=== PATIENT | female | born 1955 | race Caucasian/White ===

== ENCOUNTER 2024-10-27 08:25 | Emergency (ER) | payer MEDICARE, OTHER ==
[~2024-10-27] VITALS: Ht 157.5 cm; Wt 78.1 kg
[2024-10-27 08:36] VITALS: BP 149/100; PULSE 104; RESP 16; O2SAT 97
[2024-10-27] MEDS ORDERED: LIDO700A32 TOP (09:39)
[2024-10-27 09:53] VITALS: TEMP 98
== END 2024-10-27 10:00 | disposition home or self-care (01) ==
LOC: ER 08:26
DX: M25.511 Pain in right shoulder (principal); Z88.6 Allergy status to analgesic agent
CPT/HCPCS: 73030; 99283

== ENCOUNTER 2024-11-19 11:05 | Emergency (ER) | payer MEDICARE ==
[~2024-11-19] VITALS: Ht 157.5 cm; Wt 77.6 kg
[~2024-11-19 11:05] MED LIST: LIDO700A32 TOP
[2024-11-19 12:09] LABS: ALBUMIN 3.9 G/DL (3.4-5.0); ANION GAP 10 (8-16); BASOPHILS # (AUTO) 0.1 X10'3 (0-0.2); BASOPHILS % (AUTO) 0.6 % (0-1); BLOOD UREA NITROGEN 13 MG/DL (7-18); BUN/CREATININE RATIO 18.6 (10.0-20.0); CALCIUM 8.8 MG/DL (8.5-10.1); CHLORIDE 103 MMOL/L (99-107); EOSINOPHILS # (AUTO) 0.1 X10'3 (0-0.9); EOSINOPHILS % (AUTO) 0.9 % (0-6); GLUCOSE 104 MG/DL (70-104); HEMATOCRIT 40.2 % (35.0-45.0); HEMOGLOBIN 13.7 g/dl (12.0-16.0); LYMPHOCYTES # (AUTO) 0.6 X10'3 (1.1-4.8); LYMPHOCYTES % (AUTO) 6.8 % (21-51); MEAN CORPUSCULAR HEMOGLOBIN 33.7 PG (27.0-31.0); MEAN CORPUSCULAR HGB CONC 34.1 g/dL (33.0-36.5); MEAN CORPUSCULAR VOLUME 98.8 FL (78-98); MEAN PLATELET VOLUME 7.9 FL (7.4-10.4); MONOCYTES % (AUTO) 10.7 % (2-12); NEUTROPHILS # (AUTO) 7.6 X10'3 (1.8-7.7); PLATELET COUNT 216 X10'3 (140-440); POTASSIUM 3.6 MMOL/L (3.5-5.1); RED BLOOD COUNT 4.07 X10'6 (4.20-5.60); RED CELL DISTRIBUTION WIDTH 13.6 % (11.5-14.5); SODIUM 140 MMOL/L (135-145); TOTAL CARBON DIOXIDE 27.2 MMOL/L (24-32); WHITE BLOOD COUNT 9.4 X10'3 (4.5-11.0); eCRCL 62 ML/MIN; eGFR 83 ML/MIN
[2024-11-19 13:46] LABS: BILIRUBIN,URINE NEGATIVE (Neg); CLARITY,URINE CLEAR (Clear); COLOR,URINE YELLOW (Yellow); GLUCOSE, URINE NEGATIVE (Neg); KETONES,URINE NEGATIVE (Neg); LEUKOCYTE ESTERASE ,URINE SMALL (Neg); NITRITES, URINE NEGATIVE (Neg); OCCULT BLOOD,URINE SMALL (Neg); PROTEIN,URINE NEGATIVE (Neg); UROBILINOGEN,URINE 0.2 E.U/dL (0.2-1.0)
[2024-11-19 13:53] LABS: UA COLLECTION TYPE CLN CATCH MIDSTREAM
[2024-11-19 14:09] LABS: BACTERIA,URINE 1+ /HPF (Neg); RENAL CELLS, URINE FEW /HPF; SQUAMOUS EPITHELIAL CELL,UR FEW /LPF (FEW); TRANSITIONAL EPI CELLS,URINE FEW /HPF
[2024-11-19] MEDS ORDERED: NITR100C6 PO (14:17)
[2024-11-19 14:36] VITALS: BP 173/89; PULSE 91; RESP 18; TEMP 99.6; O2SAT 99
== END 2024-11-19 14:37 | disposition home or self-care (01) ==
LOC: ER 11:05
DX: N39.0 Urinary tract infection, site not specified (principal); K62.5 Hemorrhage of anus and rectum; F17.200 Nicotine dependence, unspecified, uncomplicated; Z88.5 Allergy status to narcotic agent; Z88.6 Allergy status to analgesic agent; Z91.040 Latex allergy status; Z88.1 Allergy status to other antibiotic agents
CPT/HCPCS: 36415; 80048; 81001; 85025; 87088; 99283

== ENCOUNTER 2024-11-30 19:18 | Emergency (ER) | payer MEDICARE ==
[~2024-11-30] VITALS: Ht 157.5 cm; Wt 81.0 kg
[~2024-11-30 19:18] MED LIST changes: +NITR100C6 PO
[2024-11-30 19:22] VITALS: BP 120/85; PULSE 79; O2SAT 99
[2024-11-30 20:23] VITALS: RESP 14; TEMP 97.7
== END 2024-11-30 20:59 | disposition home or self-care (01) ==
LOC: ER 19:19
DX: S82.401A Unspecified fracture of shaft of right fibula, initial encounter for closed fracture (principal); M19.90 Unspecified osteoarthritis, unspecified site; Z88.1 Allergy status to other antibiotic agents; Z88.5 Allergy status to narcotic agent; Z88.6 Allergy status to analgesic agent; Z98.890 Other specified postprocedural states; W19.XXXA Unspecified fall, initial encounter; X58.XXXA Exposure to other specified factors, initial encounter; Y93.89 Activity, other specified; Y92.89 Other specified places as the place of occurrence of the external cause; Y99.8 Other external cause status
CPT/HCPCS: 29515; 73610; 99284; A6446; A6449

== ENCOUNTER 2024-12-01 00:02 | Emergency (ER) | payer MEDICARE ==
[~2024-12-01] VITALS: Ht 157.5 cm; Wt 76.4 kg
[2024-12-01 00:03] VITALS: PULSE 70; RESP 18; O2SAT 99
[2024-12-01 01:34] VITALS: BP 100/60
[2024-12-01] MEDS: ondansetron 4mg rapidly disintigrating tab PO ONE (01:59)
[2024-12-01] MEDS: acetaminophen 325mg tablet PO ONE (03:49)
[2024-12-01 03:50] VITALS: TEMP 98
== END 2024-12-01 04:06 | disposition home or self-care (01) ==
LOC: ER 00:03
DX: M79.604 Pain in right leg (principal); F10.129 Alcohol abuse with intoxication, unspecified; M19.90 Unspecified osteoarthritis, unspecified site; Z98.890 Other specified postprocedural states; Z88.5 Allergy status to narcotic agent; Z88.6 Allergy status to analgesic agent; Z88.1 Allergy status to other antibiotic agents; Y90.9 Presence of alcohol in blood, level not specified
CPT/HCPCS: 99284

== ENCOUNTER 2024-12-03 16:43 | Emergency (ER) | payer MEDICARE ==
[~2024-12-03] VITALS: Ht 157.5 cm; Wt 76.4 kg
[2024-12-03 21:06] VITALS: BP 146/83; PULSE 94; RESP 15; O2SAT 98
== END 2024-12-03 18:14 | disposition home or self-care (01) ==
LOC: ER 16:44
DX: S14.3XXA Injury of brachial plexus, initial encounter (principal); M19.90 Unspecified osteoarthritis, unspecified site; Z88.1 Allergy status to other antibiotic agents; Z88.5 Allergy status to narcotic agent; Z88.6 Allergy status to analgesic agent; Z98.890 Other specified postprocedural states; X58.XXXA Exposure to other specified factors, initial encounter; Y93.89 Activity, other specified; Y92.89 Other specified places as the place of occurrence of the external cause; Y99.8 Other external cause status
CPT/HCPCS: 73630; 99283

== ENCOUNTER 2025-01-08 15:11 | Emergency (ER) | payer MEDICARE ==
[~2025-01-08] VITALS: Ht 157.5 cm; Wt 76.4 kg
--- NOTE | 2025-01-08 15:40 | RADIOLOGY REPORT ---
X-ray right ankle REASON FOR EXAM: ANKLE PAIN INDICATION: Post casting FINDINGS: Nondisplaced fracture distal fibula seen through cast material IMPRESSION: 1. Distal fibular fracture nondisplaced
--- NOTE | 2025-01-08 17:26 | Physician Documentation ---
History of Present Illness ~ Chief Complaint: Ankle pain Stated Complaint: FOOT CAST EVAL Time Seen by MD: 16:28 OK to notify your PCP?: Yes Primary Medical Doctor: none Source: patient Mode of Arrival: POV Exam Limitations: no limitations HPI This is a 69-year-old female who comes in for right ankle fracture re- evaluation. The patient had a fall and was seen here about a month ago where she was diagnosed with a right distal fibula fracture. The patient was states that is she was never able to follow up with the orthopedic physician who has contact information she was given at her last visit because she does not have a primary care physician and you can not get a referral. The patient is asking to be placed in a boot. She was not complaining of any new or worsening symptoms regarding the fracture. Tetanus witin 5 years: Yes Medication Reconciliation Allergies: Coded Allergies: Barbiturates (Verified Allergy, Unknown, 12/01/24) aspirin (Unverified Allergy, Unknown, 12/01/24) codeine (Verified Allergy, Unknown, 12/01/24) latex (Unverified Allergy, Unknown, 12/01/24) lidocaine (Verified Allergy, Unknown, 12/01/24) meperidine (Verified Allergy, Unknown, 12/01/24) morphine (Verified Allergy, Unknown, 11/19/24) tetracycline (Verified Allergy, Unknown, 11/19/24) Uncoded Allergies: BEE VENOM (Allergy, Unknown, 10/27/24) NOVOCAINE (Allergy, Unknown, 11/19/24) PENICILLIN (Allergy, Unknown, 11/19/24) SULFA (Allergy, Unknown, 11/19/24) Scheduled Lidocaine (Lidoderm), 1 PATCH TOP Q12H Nitrofurantoin Monohyd/M-Cryst (Macrobid 100 mg Capsule), 1 CAP PO Q12H Past Medical History Past Medical History: Diverticulitis, Diverticulosis, *RENAL/*, Arthritis, Extremity Fracture Past Surgical History: abdominal surgery Other Past Surgical History: prolapsed bladder/vaginal repair Drug Use: none Lives In: Home Physical Exam Vital Signs: Temperature: 97.8, Source: Temporal, Heart Rate: 85, Respiratory Rate: 18, BP: 156/98, Pulse Oximetry: 98, Weight: 76.360 Pulse Oximetry Reflects: adequate oxygenation General Appearance: alert, WD/WN, no apparent distress Ankle To inspection of the right ankle mild edema over the lateral malleolus. The patient was initially was in a Orthoglass splint that was placed a month ago. It was taken down. No signs of compartment syndrome. The cap refill of the digits of the right foot and less than 2 seconds and brisk. Compartments are compressible. The patient was placed in a cam walking boot Procedures Procedures Walking boot placement Splinting Procedure Note The patient was placed in a cam walking boot by the range technician. Distal circulation motor sensory assessed 20 minutes after application of the boot. Cap refill less than 2 seconds and brisk of the tip of the digits of the right foot and skin is pinkish brown warm dry. The patient is not complaining of any worsening pain Progress Results/Orders Results/Orders Orders - CHANTAL HENLEY Ankle, Complete(3vw Min) (01/08/25 15:20) Ortho Orders (01/08/25 17:19) Completed Orders - CHANTAL HENLEY Ankle, Complete(3vw Min) (01/08/25 15:20) Vital Signs 01/08/25 15:15 Temp 97.8 Pulse 85 Resp 18 B/P (MAP) 156/98 Pulse Ox 98 EKG/XRAY/CT/US/VASC/MRI Bone/Soft Tissue X-Ray (Ext.) : Interpreted By: self Additional Comment X-ray right ankle three-view interpreted by me: Redemonstration of a fracture of the right distal fibula. Mild soft tissue swelling. No new fractures or findings since prior study. Medical Decision Making Findings The range technician place the patient in a cam walking boot and she will be discharged back home with the instructions to try to follow up with the Orthopedics or a primary care physician for referral. Additional Comment Distal fibula fracture. Request for an ortho boot. Departure Disposition: 01 HOME / SELF CARE / HOMELESS Impression: Primary Impression: Closed fracture of right distal fibula Condition: Stable Discharge Instructions: Ankle Fracture Additional Instructions: Wear the boot and your up and moving around. You can remove it for bathing. Try to establish a primary care physician for referral to an orthopedic surgeon. Take ibuprofen or Tylenol for pain. Referrals: NO PRIMARY CARE PROVIDER (PCP) [facility] Signature Scribe Signature: No scribe Attestation: The note accurately reflects work and decisions made by me.Chantal DUBOIS 01/08/25 17:26 CHANTAL HENLEY Jan 08, 2025 17:26
[2025-01-08 19:50] VITALS: BP 155/94; PULSE 80; RESP 18; TEMP 98.6; O2SAT 99
== END 2025-01-08 19:51 | disposition home or self-care (01) ==
LOC: ER 15:11
DX: S82.831A Other fracture of upper and lower end of right fibula, initial encounter for closed fracture (principal); M19.90 Unspecified osteoarthritis, unspecified site; Z88.5 Allergy status to narcotic agent; Z88.6 Allergy status to analgesic agent; Z98.890 Other specified postprocedural states; W19.XXXA Unspecified fall, initial encounter; Y93.89 Activity, other specified; Y92.89 Other specified places as the place of occurrence of the external cause; Y99.8 Other external cause status
CPT/HCPCS: 73610; 99284; A6449; L4360; Z7610